=== PATIENT | male | born 1990 | race Caucasian/White ===

== ENCOUNTER 2017-08-20 00:09 | Emergency (ER) | payer SELFPAY ==
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
[2017-08-20 00:28] LABS: PLATELET COUNT 236 10^3/uL (150-400)
[2017-08-20 00:46] VITALS: BP 141/77
== END 2017-08-20 00:48 | disposition home or self-care (01) ==
DX: S51.812A Laceration without foreign body of left forearm, initial encounter (principal); S31.119A Laceration without foreign body of abdominal wall, unspecified quadrant without penetration into peritoneal cavity, initial encounter; S11.81XA Laceration without foreign body of other specified part of neck, initial encounter; S81.811A Laceration without foreign body, right lower leg, initial encounter; X78.1XXA Intentional self-harm by knife, initial encounter; Y92.810 Car as the place of occurrence of the external cause; Y99.8 Other external cause status; Y93.89 Activity, other specified
CPT/HCPCS: G0480

== ENCOUNTER 2017-10-31 03:52 | Emergency (ER) | payer OTHER ==
[2017-10-31 03:59] VITALS: BP 114/84
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
[2017-10-31] MEDS ORDERED: IBUPROFEN 800 MG TAB PO ONE (04:03)
== END 2017-10-31 04:40 | disposition home or self-care (01) ==
DX: S33.5XXA Sprain of ligaments of lumbar spine, initial encounter (principal); E11.9 Type 2 diabetes mellitus without complications; J45.909 Unspecified asthma, uncomplicated; F17.200 Nicotine dependence, unspecified, uncomplicated; V49.40XA Driver injured in collision with unspecified motor vehicles in traffic accident, initial encounter; Y92.410 Unspecified street and highway as the place of occurrence of the external cause; Y99.8 Other external cause status; Y93.89 Activity, other specified

== ENCOUNTER 2018-08-09 22:46 | Emergency (ER) | payer SELFPAY ==
[2018-08-09] MEDS ORDERED: CEPHALEXIN 500 MG CAP PO ONE (23:07)
[2018-08-09] MEDS ORDERED: TDAP ADULT 0.5 ML INJ (BOOSTRIX) IM ONE (23:07)
[2018-08-09] MEDS ORDERED: CEPHALEXIN 500MG PREPACK#4 BTL TAKEHOME ONE (23:08)
--- NOTE | 2018-08-10 00:48 | EDPHY ---
H & P Stated Complaint: left leg lac happen yesterdayc XVVx c Time Seen by Provider: 08/09/18 22:56 HPI/ROS: Chief complaint: Left leg laceration History of present illness: This is a 28-year-old male who presents to the emergency department for left leg laceration. Patient states he yesterday, during the day he was shopping in a knife when it slipped and cut his leg. He applied dressing. However on changing the dressing today he realized a large laceration was and came here. Reports mild discomfort. He can still move the left lower extremity including the knee, ankle in digits well. No report of abnormal coolness or paresthesias. No other injuries. He is not sure if his tetanus is up-to-date. - Personal History Current Tetanus/Diphtheria Vaccine: No Current Tetanus Diphtheria and Acellular Pertussis (TDAP): No - Medical/Surgical History Hx Asthma: No Hx Chronic Respiratory Disease: No Hx Diabetes: No Hx Cardiac Disease: No Hx Renal Disease: No Hx Cirrhosis: No Hx Alcoholism: No Hx HIV/AIDS: No Hx Splenectomy or Spleen Trauma: No Other PMH: cutting - Social History Smoking Status: Current every day smoker - Physical Exam Exam: General: Alert, nontoxic. Skin: Patient has a 7 cm laceration to the left medial calf. It is gaping. Muscle belly is protruding. Exploration does reveal involvement of fascia. No foreign bodies. Musculoskeletal: He is moving the digits, ankle and knee in all pires well. He is ambulating without difficulty. Vascular: DP and PT pulses 2+. Neurologic: Sensation appears intact in the left leg. Constitutional: Initial Vital Signs Temperature (C) 36.9 C 08/09/18 22:47 Heart Rate 117 H 08/09/18 22:47 Respiratory Rate 16 08/09/18 22:47 Blood Pressure 138/86 H 08/09/18 22:47 O2 Sat (%) 95 08/09/18 22:47 O2 Delivery Mode Room Air Allergies/Adverse Reactions: No Known Allergies Allergy (Verified 08/09/18 22:50) Home Medications: Medication Instructions Recorded Cephalexin [Keflex] 500 mg PO TID 7 Days cap 08/10/18 Medical Decision Making - Diagnostics Imaging: I viewed and interpreted images myself Procedures: Procedure: Laceration repair. Verbal consent was obtained from the patient. The 7 cm laceration on the left leg was anesthetized in the usual fashion. The wound was irrigated, draped and explored to its base with a gloved finger. Muscle belly and fascia was identified that appeared injured. The wound was loosely approximated with 3 0 Prolene, 5 simple interrupted sutures. The wound repair was simple. The procedure was performed by myself. ED Course/Re-evaluation: Patient seen in conjunction with my secondary supervising physician Dr. Sabino Fonseca. Patient presents over 24 hr after an injury to his left leg that resulted in a large laceration. The leg appears neurovascularly intact. He has good musculoskeletal control. X-rays obtained and unremarkable. The wound is anesthetized, copiously irrigated. I have discussed with him as is greater than 24 hr I am not comfortable closing primarily. As it is gaping with muscle belly protruding it is very loosely approximated. He is asked to either follow- up with surgery and the wound clinic next week or this ER for re-evaluation to see if secondary intention or delayed primary care closure is reasonable. In the meantime home care is discussed. He is started on antibiotics. Return precautions are given. The patient voiced understanding and agreement with plan. Differential Diagnosis: Included but not limited to laceration, deep structure injury, foreign body contamination - Data Points Medications Given: Discontinued Medications Cephalexin (Keflex 500 Mg Prepack#4) 1 btl TAKEHOME EDNOW ONE PRN Reason: Protocol Stop: 08/09/18 23:09 Last Admin: 08/09/18 23:17 Dose: 1 btl Cephalexin HCl (Keflex) 500 mg PO EDNOW ONE PRN Reason: Protocol Stop: 08/09/18 23:08 Last Admin: 08/09/18 23:16 Dose: 500 mg Diphtheria/Tetanus/Acell Pertussis (Boostrix) 0.5 ml IM .ONCE ONE Stop: 08/09/18 23:08 Last Admin: 08/09/18 23:17 Dose: 0.5 ml Departure - Departure Disposition: Home, Routine, Self-Care Clinical Impression: Laceration Condition: Good Instructions: Cephalexin (By mouth), Laceration (ED), Acute Wounds (ED) Additional Instructions: You wound could not be fully closed this evening as it had been too long since the initial injury Stitches are placed to stabilize the wound, they will need to be removed Please call the general surgeon on Saturday and make an appointment to discuss delayed primary closure We also recommend you follow up with the wound care clinic You can also return here on Saturday for re-evaluation and discussion about delayed primary closure If symptoms worsen or new symptoms develop return to the emergency department for recheck Referrals: NONE *PRIMARY CARE P,. [Primary Care Provider] - As per Instructions Sabino Merrill MD [Medical Doctor] - As per Instructions [facility] (ED,. [Edm Groups for Call Sched] - As per Instructions Prescriptions: Cephalexin [Keflex] 500 mg PO TID 7 Days cap
[2018-08-10 01:10] VITALS: BP 110/78
== END 2018-08-10 01:11 | disposition home or self-care (01) ==
PROC: 0HQLXZZ Repair Left Lower Leg Skin, External Approach (ICD-10-PCS; principal; 2018-08-09)
DX: S81.812A Laceration without foreign body, left lower leg, initial encounter (principal); W26.0XXA Contact with knife, initial encounter